=== PATIENT | male | born 1970 | race Two or more races ===

== ENCOUNTER 2016-08-20 09:11 | Inpatient (IN) | payer SELFPAY ==
[~2016-08-20] VITALS: Ht 167.6 cm; Wt 81.6 kg
[2016-08-20 11:44] LABS: Basophils # (auto) 0 uL; Basophils % (auto) 0.3 % (0.0-2.0); CONDITION Y; DEFINITIVE SEE PRINTOUT; Eosinophils # (auto) 0 uL; Eosinophils % (auto) 0.1 % (0.0-7.0); Hematocrit 46.2 % (41.0-53.0); Hemoglobin 16.5 g/dL (13.5-17.5); Lymphocytes # (auto) 1.2 uL; Lymphocytes % (auto) 21.2 % (10.0-50.0); Mean Corpuscular Hemoglobin 34.4 pg (28.0-32.0); Mean Corpuscular Hgb Conc. 35.6 g/dL (32.0-36.0); Mean Corpuscular Volume 96.6 fL (80.0-100.0); Mean Platelet Volume 9.5 fL (7.4-10.4); Monocytes # (auto) 0.6 uL; Monocytes % (auto) 10.2 % (0.0-12.0); Neutrophils # (auto) 3.7 uL; Neutrophils % (auto) 68.2 % (37.0-80.0); Platelet Count (auto) 138 10^3/uL (140-450); White Blood Cell 5.5 10^3/uL (4.4-10.8)
[2016-08-20 12:09] LABS: Albumin 3.6 g/dL (3.4-5.0); BUN/Creatinine Ratio 14.8; Bilirubin, Total 0.7 mg/dL (0.2-1.0); Calcium 9.2 mg/dL (8.5-10.1); Total Protein 8.3 g/dL (6.4-8.2)
[2016-08-20 12:20] LABS: Potassium 4.1 mmol/L (3.5-5.1)
[2016-08-20] MEDS ORDERED: SODIUM CHLORIDE 0.9% 1,000 ML IV ONE ×2 (12:30→12:45)
[2016-08-20] MEDS ORDERED: cefTRIAXone 1GM/50ML D5W 50 ML IV ONE (13:45)
[2016-08-20] MEDS ORDERED: KETOROLAC TROMETH 30 MG/ML 1ML VIAL IV ONE (13:45)
[2016-08-20] MEDS ORDERED: InsuLIN REG 1unit/0.01ml Soln (100units/ml) IV ONE (13:45)
[2016-08-20] MEDS ORDERED: DEXTROSE (50%) 50ML SYRG IV PRN ×2 (14:45)
[2016-08-20] MEDS ORDERED: AZITHROMYCIN 500MG/D5W 250ML 250 ML IV ONE (15:00)
[2016-08-20] MEDS ORDERED: ONDANSETRON HCL 4 MG/2 ML VIAL IV PRN (15:00)
[2016-08-20] MEDS ORDERED: HYDROcodone-ACET 5/325MG TAB PO PRN (15:00)
[2016-08-20] MEDS ORDERED: ACETAMINOPHEN 500 MG TAB PO PRN (15:00)
[2016-08-20] MEDS ORDERED: LORazepam 0.5 MG TAB PO PRN (15:00)
[2016-08-20 15:07] LABS: Amylase 27 U/L (25-115)
[2016-08-20 16:28] LABS: Albumin 3.7 g/dL (3.4-5.0); Alkaline Phosphatase 102 U/L (45-117); Bilirubin, Total 0.7 mg/dL (0.2-1.0); Total Protein 8.5 g/dL (6.4-8.2)
[2016-08-20 16:30] LABS: Aspartate Aminotransferase 145 U/L (15-37); Bilirubin, Direct < 0.1 mg/dL (0-0.2)
[2016-08-20] MEDS ORDERED: ACCU-CHEK COMFORT CURVE STRIP VI SCH (17:00)
[2016-08-20] MEDS ORDERED: InsuLIN REG 1unit/0.01ml Soln (100units/ml) SC SCH ×2 (17:00→22:00)
[2016-08-20 17:45] LABS: INR 1.01 (0.9-1.15)
[2016-08-20] MEDS: SODIUM CHLORIDE 0.9% 1,000 ML IV SCH (18:27)
[2016-08-20 18:52] LABS: Urine RBC None Seen /hpf (0 - 3)
[2016-08-20 18:59] LABS: Urine Bilirubin Negative (Negative); Urine Blood Negative /uL (Negative); Urine Color Yellow (Yellow); Urine Glucose 4+ mg/dL (Normal); Urine Ketone 3+ (Negative); Urine Nitrite Negative (Negative); Urine Urobilinogen Normal (Negative)
[2016-08-20] MEDS: InsuLIN REG 1unit/0.01ml Soln (100units/ml) SC SCH ×2 (20:14→20:20)
[2016-08-20] MEDS: ACCU-CHEK COMFORT CURVE STRIP VI SCH (20:15)
[2016-08-20 20:30] VITALS: BP 125/76
[2016-08-20 22:00] VITALS: BP 125/76
[2016-08-21] MEDS: InsuLIN REG 1unit/0.01ml Soln (100units/ml) SC SCH ×6 (04:27→20:04)
[2016-08-21] MEDS: ACCU-CHEK COMFORT CURVE STRIP VI SCH ×6 (04:27→20:04)
[2016-08-21 05:00] VITALS: BP_SYST 107; BP_SYST 128; BP_DIAS 76; BP_DIAS 77
[2016-08-21] MEDS ORDERED: PNEUMOCOCCAL VACC POLYS 25 MCG/0.5 ML VIAL IM ONE (06:00)
[2016-08-21 07:14] LABS: Basophils # (auto) 0 uL; Basophils % (auto) 0.2 % (0.0-2.0); CONDITION Y; Eosinophils # (auto) 0 uL; Eosinophils % (auto) 0.1 % (0.0-7.0); Hematocrit 37.6 % (41.0-53.0); Hemoglobin 13.1 g/dL (13.5-17.5); Lymphocytes # (auto) 1.3 uL; Lymphocytes % (auto) 27.1 % (10.0-50.0); Mean Corpuscular Hemoglobin 33.9 pg (28.0-32.0); Mean Corpuscular Volume 96.9 fL (80.0-100.0); Mean Platelet Volume 9.6 fL (7.4-10.4); Monocytes # (auto) 0.7 uL; Monocytes % (auto) 14.3 % (0.0-12.0); Neutrophils # (auto) 2.8 uL; Neutrophils % (auto) 58.3 % (37.0-80.0); Platelet Count (auto) 111 10^3/uL (140-450); Red Cell Distribution Width 12.6 % (11.6-16.0); White Blood Cell 4.8 10^3/uL (4.4-10.8)
[2016-08-21] MEDS: SODIUM CHLORIDE 0.9% 1,000 ML IV SCH ×3 (07:15→21:19)
[2016-08-21 07:44] LABS: Albumin 2.7 g/dL (3.4-5.0); BUN/Creatinine Ratio 17.5; Bilirubin, Total 0.4 mg/dL (0.2-1.0); Potassium 3.2 mmol/L (3.5-5.1); Total Protein 6.3 g/dL (6.4-8.2)
[2016-08-21 08:47] VITALS: BP 135/75
[2016-08-21] MEDS: cefTRIAXone 1GM/50ML D5W 50 ML IV SCH (09:06)
[2016-08-21] MEDS: HYDROcodone-ACET 5/325MG TAB PO PRN (09:32)
[2016-08-21] MEDS: AZITHROMYCIN 500MG/D5W 250ML 250 ML IV SCH (10:28)
[2016-08-21 12:39] VITALS: BP 113/65
[2016-08-21] MEDS ORDERED: POTASSIUM CHL 20 Meq TABLET PO ONE (13:30)
[2016-08-21 16:30] VITALS: BP 115/48
[2016-08-21] MEDS ORDERED: LIDOCAINE 2%HCL (LOCAL ANESTH.) INJ 20ML MDV ONE (16:30)
[2016-08-21] MEDS: MORPHINE SULF INJ 2 MG/ML SYRINGE 1ML IV PRN ×2 (16:41→21:26)
[2016-08-21 19:38] LABS: TUBE NUMBER TUBE 3
[2016-08-21 20:00] VITALS: BP 113/52
[2016-08-21 21:30] VITALS: BP 113/52
[2016-08-21] MEDS: ACETAMINOPHEN 325 MG TAB PO PRN (22:34)
[2016-08-22] MEDS: ACCU-CHEK COMFORT CURVE STRIP VI SCH ×7 (00:02→23:57)
[2016-08-22] MEDS: InsuLIN REG 1unit/0.01ml Soln (100units/ml) SC SCH ×7 (00:02→23:57)
[2016-08-22] MEDS: HYDROcodone-ACET 5/325MG TAB PO PRN ×2 (03:54→16:40)
[2016-08-22] MEDS: ACETAMINOPHEN 325 MG TAB PO PRN (04:35)
[2016-08-22 05:00] VITALS: BP 134/73
[2016-08-22 06:36] LABS: Basophils # (auto) 0 uL; Basophils % (auto) 0.3 % (0.0-2.0); CONDITION Y; Eosinophils # (auto) 0 uL; Eosinophils % (auto) 0.2 % (0.0-7.0); Hematocrit 36.9 % (41.0-53.0); Hemoglobin 12.9 g/dL (13.5-17.5); Lymphocytes # (auto) 0.9 uL; Lymphocytes % (auto) 20.7 % (10.0-50.0); Mean Corpuscular Hemoglobin 34.1 pg (28.0-32.0); Mean Corpuscular Hgb Conc. 35.1 g/dL (32.0-36.0); Mean Corpuscular Volume 97.1 fL (80.0-100.0); Mean Platelet Volume 9.4 fL (7.4-10.4); Monocytes # (auto) 0.7 uL; Monocytes % (auto) 15.1 % (0.0-12.0); Neutrophils # (auto) 2.9 uL; Neutrophils % (auto) 63.7 % (37.0-80.0); Platelet Count (auto) 108 10^3/uL (140-450); Red Cell Distribution Width 12.7 % (11.6-16.0); White Blood Cell 4.6 10^3/uL (4.4-10.8)
[2016-08-22 06:37] LABS: Albumin 2.5 g/dL (3.4-5.0); BUN/Creatinine Ratio 19.1; Bilirubin, Total 0.4 mg/dL (0.2-1.0)
[2016-08-22] MEDS: SODIUM CHLORIDE 0.9% 1,000 ML IV SCH ×3 (07:06→21:14)
[2016-08-22] MEDS: cefTRIAXone 1GM/50ML D5W 50 ML IV SCH (08:59)
[2016-08-22 09:00] VITALS: BP_SYST 104; BP_SYST 120; BP_DIAS 63; BP_DIAS 78
[2016-08-22] MEDS: AZITHROMYCIN 500MG/D5W 250ML 250 ML IV SCH (10:27)
[2016-08-22] MEDS: MORPHINE SULF INJ 2 MG/ML SYRINGE 1ML IV PRN (11:40)
[2016-08-22 13:00] VITALS: BP 135/78
[2016-08-22] MEDS ORDERED: POTASSIUM CHL 20 Meq TABLET PO ONE (14:00)
[2016-08-22 16:56] VITALS: BP 137/78
[2016-08-22] MEDS: INSULIN DETEMIR(LEVEMIR) 1unit/0.01ml Soln (100units/ml) SC SCH (21:54)
[2016-08-22] MEDS: TEMAZEPAM 15 MG CAP PO PRN (21:56)
[2016-08-22 22:01] VITALS: BP 106/58
[2016-08-23] MEDS: MORPHINE SULF INJ 2 MG/ML SYRINGE 1ML IV PRN (02:48)
[2016-08-23] MEDS: InsuLIN REG 1unit/0.01ml Soln (100units/ml) SC SCH ×5 (03:53→19:53)
[2016-08-23] MEDS: ACCU-CHEK COMFORT CURVE STRIP VI SCH ×5 (03:53→19:53)
[2016-08-23] MEDS: SODIUM CHLORIDE 0.9% 1,000 ML IV SCH ×3 (04:44→20:28)
[2016-08-23 05:12] VITALS: BP 98/48
[2016-08-23 05:27] LABS: Basophils # (auto) 0 uL; Basophils % (auto) 0.4 % (0.0-2.0); CONDITION Y; Eosinophils # (auto) 0 uL; Eosinophils % (auto) 0.2 % (0.0-7.0); Hematocrit 37.7 % (41.0-53.0); Hemoglobin 13.2 g/dL (13.5-17.5); Lymphocytes # (auto) 1.5 uL; Lymphocytes % (auto) 30.6 % (10.0-50.0); Mean Corpuscular Volume 97.3 fL (80.0-100.0); Mean Platelet Volume 9.9 fL (7.4-10.4); Monocytes # (auto) 0.7 uL; Monocytes % (auto) 13.6 % (0.0-12.0); Neutrophils # (auto) 2.7 uL; Neutrophils % (auto) 55.2 % (37.0-80.0); Platelet Count (auto) 124 10^3/uL (140-450); Red Cell Distribution Width 12.9 % (11.6-16.0); White Blood Cell 4.8 10^3/uL (4.4-10.8)
[2016-08-23 05:56] LABS: Albumin 2.6 g/dL (3.4-5.0); BUN/Creatinine Ratio 15.4; Calcium 8.5 mg/dL (8.5-10.1); Potassium 3.5 mmol/L (3.5-5.1)
[2016-08-23 05:59] LABS: Bilirubin, Total 0.5 mg/dL (0.2-1.0); Total Protein 6.4 g/dL (6.4-8.2)
[2016-08-23] MEDS: HYDROcodone-ACET 5/325MG TAB PO PRN ×2 (06:31→14:10)
[2016-08-23] MEDS: cefTRIAXone 1GM/50ML D5W 50 ML IV SCH (08:13)
[2016-08-23 09:00] VITALS: BP 103/60
[2016-08-23] MEDS: AZITHROMYCIN 500MG/D5W 250ML 250 ML IV SCH (10:15)
[2016-08-23 13:00] VITALS: BP 108/48
[2016-08-23] MEDS ORDERED: POTASSIUM CHL 20 Meq TABLET PO ONE (13:45)
[2016-08-23 17:00] VITALS: BP 99/37
[2016-08-23 20:11] LABS: HSV-1 DNA CSF Negative (Negative)
[2016-08-23 21:41] VITALS: BP 103/51
[2016-08-23] MEDS: INSULIN DETEMIR(LEVEMIR) 1unit/0.01ml Soln (100units/ml) SC SCH (21:51)
[2016-08-23] MEDS: TEMAZEPAM 15 MG CAP PO PRN (21:51)
[2016-08-24] MEDS: InsuLIN REG 1unit/0.01ml Soln (100units/ml) SC SCH ×6 (00:11→22:22)
[2016-08-24] MEDS: ACCU-CHEK COMFORT CURVE STRIP VI SCH ×6 (00:11→22:22)
[2016-08-24] MEDS: HYDROcodone-ACET 5/325MG TAB PO PRN ×2 (00:12→22:22)
[2016-08-24] MEDS: SODIUM CHLORIDE 0.9% 1,000 ML IV SCH ×3 (04:14→20:32)
[2016-08-24 05:11] VITALS: BP 95/44
[2016-08-24 06:32] LABS: Basophils # (auto) 0 uL; Basophils % (auto) 0.3 % (0.0-2.0); CONDITION Y; Eosinophils # (auto) 0 uL; Eosinophils % (auto) 0.8 % (0.0-7.0); Hematocrit 39.6 % (41.0-53.0); Hemoglobin 13.7 g/dL (13.5-17.5); Lymphocytes # (auto) 1.8 uL; Lymphocytes % (auto) 42.6 % (10.0-50.0); Mean Corpuscular Hemoglobin 33.7 pg (28.0-32.0); Mean Corpuscular Hgb Conc. 34.6 g/dL (32.0-36.0); Mean Corpuscular Volume 97.5 fL (80.0-100.0); Mean Platelet Volume 9.9 fL (7.4-10.4); Monocytes # (auto) 0.6 uL; Monocytes % (auto) 13.7 % (0.0-12.0); Neutrophils # (auto) 1.7 uL; Neutrophils % (auto) 42.6 % (37.0-80.0); Platelet Count (auto) 148 10^3/uL (140-450); Red Cell Distribution Width 12.9 % (11.6-16.0); White Blood Cell 4.1 10^3/uL (4.4-10.8)
[2016-08-24 06:54] LABS: Albumin 2.8 g/dL (3.4-5.0); BUN/Creatinine Ratio 16.9; Bilirubin, Total 0.5 mg/dL (0.2-1.0); Calcium 9.3 mg/dL (8.5-10.1); Potassium 3.9 mmol/L (3.5-5.1); Total Protein 6.8 g/dL (6.4-8.2)
[2016-08-24 09:00] VITALS: BP 92/41
[2016-08-24 10:10] LABS: Hepatitis B Surface Antibody Negative
[2016-08-24] MEDS ORDERED: DEXTROSE (50%) 50ML SYRG IV PRN (10:30)
[2016-08-24 13:00] VITALS: BP 110/68
[2016-08-24 16:07] LABS: IgG, Quant, CSF 2.4 mg/dL (0.0-8.6); IgG/Alb Ratio, CSF 0.15 (0.00-0.25)
[2016-08-24 17:00] VITALS: BP 100/53
[2016-08-24] MEDS: ACETAMINOPHEN 325 MG TAB PO PRN (17:40)
[2016-08-24] MEDS: metFORMIN HYDROCHLORIDE 500 MG TAB PO SCH (17:40)
[2016-08-24 22:00] VITALS: BP 92/57
[2016-08-24] MEDS: INSULIN DETEMIR(LEVEMIR) 1unit/0.01ml Soln (100units/ml) SC SCH (22:27)
[2016-08-25] MEDS: SODIUM CHLORIDE 0.9% 1,000 ML IV SCH (04:19)
[2016-08-25] MEDS: ACETAMINOPHEN 325 MG TAB PO PRN (04:46)
[2016-08-25 05:00] VITALS: BP 110/42
[2016-08-25 05:10] LABS: Basophils # (auto) 0 uL; Basophils % (auto) 0.5 % (0.0-2.0); CONDITION Y; Eosinophils # (auto) 0 uL; Eosinophils % (auto) 0.8 % (0.0-7.0); Hematocrit 43.6 % (41.0-53.0); Hemoglobin 14.9 g/dL (13.5-17.5); Lymphocytes # (auto) 1.7 uL; Lymphocytes % (auto) 40.1 % (10.0-50.0); Mean Corpuscular Hemoglobin 33.7 pg (28.0-32.0); Mean Corpuscular Hgb Conc. 34.1 g/dL (32.0-36.0); Mean Corpuscular Volume 98.8 fL (80.0-100.0); Mean Platelet Volume 10.1 fL (7.4-10.4); Monocytes # (auto) 0.5 uL; Monocytes % (auto) 12.7 % (0.0-12.0); Neutrophils # (auto) 1.9 uL; Neutrophils % (auto) 45.9 % (37.0-80.0); Platelet Count (auto) 201 10^3/uL (140-450); Red Cell Distribution Width 13.2 % (11.6-16.0); White Blood Cell 4.2 10^3/uL (4.4-10.8)
[2016-08-25 05:34] LABS: Albumin 2.8 g/dL (3.4-5.0); BUN/Creatinine Ratio 17.5; Bilirubin, Total 0.5 mg/dL (0.2-1.0); Total Protein 7.3 g/dL (6.4-8.2)
[2016-08-25] MEDS: metFORMIN HYDROCHLORIDE 500 MG TAB PO SCH ×2 (06:41→17:58)
[2016-08-25] MEDS: ACCU-CHEK COMFORT CURVE STRIP VI SCH ×4 (06:42→22:13)
[2016-08-25] MEDS: InsuLIN REG 1unit/0.01ml Soln (100units/ml) SC SCH ×4 (06:42→22:13)
[2016-08-25 08:43] VITALS: BP 100/62
[2016-08-25 13:18] VITALS: BP 106/66
[2016-08-25] MEDS: MIDODRINE HCL 10 MG TAB PO SCH ×2 (13:38→22:13)
[2016-08-25 16:37] VITALS: BP 120/72
[2016-08-25] MEDS: HYDROcodone-ACET 5/325MG TAB PO PRN (17:58)
[2016-08-25 22:00] VITALS: BP 96/58
[2016-08-25] MEDS: TEMAZEPAM 15 MG CAP PO PRN (22:13)
[2016-08-25] MEDS: INSULIN DETEMIR(LEVEMIR) 1unit/0.01ml Soln (100units/ml) SC SCH (22:22)
[2016-08-26 05:00] VITALS: BP 116/62
[2016-08-26 06:28] LABS: Basophils # (auto) 0 uL; Basophils % (auto) 0.4 % (0.0-2.0); CONDITION Y; Eosinophils # (auto) 0 uL; Eosinophils % (auto) 0.5 % (0.0-7.0); Hematocrit 38.8 % (41.0-53.0); Hemoglobin 13.4 g/dL (13.5-17.5); Lymphocytes # (auto) 1.8 uL; Lymphocytes % (auto) 33.1 % (10.0-50.0); Mean Corpuscular Hemoglobin 33.9 pg (28.0-32.0); Mean Corpuscular Hgb Conc. 34.4 g/dL (32.0-36.0); Mean Corpuscular Volume 98.5 fL (80.0-100.0); Monocytes # (auto) 0.7 uL; Monocytes % (auto) 12.2 % (0.0-12.0); Neutrophils # (auto) 2.9 uL; Neutrophils % (auto) 53.8 % (37.0-80.0); Platelet Count (auto) 227 10^3/uL (140-450); Red Cell Distribution Width 13.2 % (11.6-16.0); White Blood Cell 5.3 10^3/uL (4.4-10.8)
[2016-08-26] MEDS: metFORMIN HYDROCHLORIDE 500 MG TAB PO SCH ×2 (06:56→18:04)
[2016-08-26] MEDS: MIDODRINE HCL 10 MG TAB PO SCH ×3 (06:56→22:18)
[2016-08-26 06:57] LABS: BUN/Creatinine Ratio 16.4; Calcium 8.7 mg/dL (8.5-10.1); Potassium 3.8 mmol/L (3.5-5.1)
[2016-08-26] MEDS: ACCU-CHEK COMFORT CURVE STRIP VI SCH ×4 (07:08→22:33)
[2016-08-26] MEDS: InsuLIN REG 1unit/0.01ml Soln (100units/ml) SC SCH ×4 (07:30→22:34)
[2016-08-26 08:49] VITALS: BP 95/53
[2016-08-26 12:36] VITALS: BP 93/55
[2016-08-26 17:00] VITALS: BP 125/67
[2016-08-26 20:10] VITALS: BP 127/81
[2016-08-26 22:00] VITALS: BP 110/61
[2016-08-26] MEDS: INSULIN DETEMIR(LEVEMIR) 1unit/0.01ml Soln (100units/ml) SC SCH (22:15)
[2016-08-26] MEDS: HYDROcodone-ACET 5/325MG TAB PO PRN (22:32)
[2016-08-27 01:00] VITALS: BP 93/51
[2016-08-27 02:01] VITALS: BP 97/58
[2016-08-27] MEDS: ACETAMINOPHEN 325 MG TAB PO PRN (03:33)
[2016-08-27] MEDS: MIDODRINE HCL 10 MG TAB PO SCH ×3 (05:54→21:32)
[2016-08-27] MEDS: metFORMIN HYDROCHLORIDE 500 MG TAB PO SCH ×2 (06:32→18:19)
[2016-08-27] MEDS: InsuLIN REG 1unit/0.01ml Soln (100units/ml) SC SCH ×4 (06:35→21:32)
[2016-08-27] MEDS: ACCU-CHEK COMFORT CURVE STRIP VI SCH ×4 (06:47→22:00)
[2016-08-27 07:13] LABS: BUN/Creatinine Ratio 17.2; Calcium 8.7 mg/dL (8.5-10.1); Potassium 3.7 mmol/L (3.5-5.1)
[2016-08-27 09:00] VITALS: BP 109/66
[2016-08-27 13:00] VITALS: BP 107/64
[2016-08-27] MEDS ORDERED: LORazepam 0.5 MG TAB PO PRN (13:00)
[2016-08-27] MEDS ORDERED: TEMAZEPAM 15 MG CAP PO PRN (13:00)
[2016-08-27 17:00] VITALS: BP 115/61
[2016-08-27 22:00] VITALS: BP 101/52
[2016-08-28 05:00] VITALS: BP 95/57
[2016-08-28] MEDS: MIDODRINE HCL 10 MG TAB PO SCH ×3 (05:35→22:37)
[2016-08-28] MEDS: metFORMIN HYDROCHLORIDE 500 MG TAB PO SCH ×2 (06:30→18:00)
[2016-08-28] MEDS: ACCU-CHEK COMFORT CURVE STRIP VI SCH ×4 (06:33→22:37)
[2016-08-28] MEDS: InsuLIN REG 1unit/0.01ml Soln (100units/ml) SC SCH ×4 (06:34→22:37)
[2016-08-28 06:43] LABS: Albumin 2.6 g/dL (3.4-5.0); BUN/Creatinine Ratio 16.7; Bilirubin, Total 0.5 mg/dL (0.2-1.0); Calcium 8.9 mg/dL (8.5-10.1); Potassium 3.9 mmol/L (3.5-5.1); Total Protein 6.9 g/dL (6.4-8.2)
[2016-08-28 09:00] VITALS: BP 121/69
[2016-08-28] MEDS ORDERED: INSUINJ37 SUBCUT (10:53)
[2016-08-28] MEDS ORDERED: METF500T PO (10:53)
[2016-08-28] MEDS ORDERED: MID10T PO (10:53)
[2016-08-28 13:00] VITALS: BP 101/46
[2016-08-28 17:00] VITALS: BP 107/61
[2016-08-28 22:00] VITALS: BP 101/48
[2016-08-29 04:41] VITALS: BP 109/65
[2016-08-29] MEDS: MIDODRINE HCL 10 MG TAB PO SCH (06:32)
[2016-08-29] MEDS: ACCU-CHEK COMFORT CURVE STRIP VI SCH ×2 (06:37→11:30)
[2016-08-29] MEDS: metFORMIN HYDROCHLORIDE 500 MG TAB PO SCH (06:37)
[2016-08-29] MEDS: InsuLIN REG 1unit/0.01ml Soln (100units/ml) SC SCH ×2 (06:39→11:30)
[2016-08-29 07:59] VITALS: BP 94/65
== END 2016-08-29 13:30 | disposition home or self-care (01) | DRG 866 ==
LOC: ER 09:11 → TELE 09:12 → TELE-EAST 20:26 → EAST 08-21 02:01 → TELE-EAST 08-27 01:00
PROVIDERS: ADMIT Internal Medicine; ATTEND Internal Medicine
PROC: 009U3ZX Drainage of Spinal Canal, Percutaneous Approach, Diagnostic (ICD-10-PCS; principal; 2016-08-21)
PROC: B01B1ZZ Fluoroscopy of Spinal Cord using Low Osmolar Contrast (ICD-10-PCS; 2016-08-21)
DX: B34.9 Viral infection, unspecified (principal); E87.1 Hypo-osmolality and hyponatremia; G03.1 Chronic meningitis; I31.3 Pericardial effusion (noninflammatory); K76.0 Fatty (change of) liver, not elsewhere classified; R10.9 Unspecified abdominal pain; J01.10 Acute frontal sinusitis, unspecified; I95.9 Hypotension, unspecified; R00.1 Bradycardia, unspecified; E66.9 Obesity, unspecified; E87.6 Hypokalemia; E11.65 Type 2 diabetes mellitus with hyperglycemia; D69.6 Thrombocytopenia, unspecified; Z23 Encounter for immunization; Z83.3 Family history of diabetes mellitus; Z86.61 Personal history of infections of the central nervous system; Z82.5 Family history of asthma and other chronic lower respiratory diseases; Z68.29 Body mass index [BMI] 29.0-29.9, adult
CPT/HCPCS: 36415; 62272; 70450; 71020; 71250; 74176; 76705; 78452; 80048; 80053; 80061; 80076; 80307; 81001; 82010; 82042; 82150; 82164; 82533; 82784; 82945; 82962; 83036; 83605; 83690; 83735; 84157; 84443; 85025; 85610; 86704; 86706; 86708; 86803; 87040; 87070; 87205; 87340; 87529; 87899; 89051; 93005; 93017; 93306; 96361; 96365; 96375; 99291; J0696; J1815; J1885